=== PATIENT | female | born 1985 | race Caucasian/White ===

== ENCOUNTER 2017-11-02 18:21 | Emergency (ER) | payer OTHER ==
[~2017-11-02] VITALS: Ht 165.1 cm; Wt 68.0 kg
[~2017-11-02 18:21] MED LIST: AZIT250T PO; birth control
[2017-11-02 18:40] VITALS: BP 117/69
[2017-11-02] MEDS ORDERED: predniSONE 20 MG TABLET PO ONE (18:45)
--- NOTE | 2017-11-02 18:45 | ED.ADGEN ---
Past History Past Medical History: No Pertinent History, Other Past Surgical History: Other Smoking: Non-smoker Alcohol Use: None Drug Use: None Adult General Chief Complaint Chief Complaint " I ve got a really bad sore throat...It came on all of sudden.. I think I got it from my ...." HPI HPI Patient is a 32 year old female who presents with above hx and complaints of pharyngitis, myalgia, fever, malaise, and dysuria. Has been exposed to her who has similar complaints of pharyngitis. No recent travel. No specific ill contacts other than . Patient is normally healthy. Patient up-to-date with vaccinations. Follows at [facility]. Review of Systems Review of Systems Constitutional: Complaints of fever and chills [] Eyes: Denies change in visual acuity, redness, or eye pain [] HENT: Denies nasal congestion. Complaints of sore throat [] Respiratory: Denies cough or shortness of breath [] Cardiovascular: No additional information not addressed in HPI [] GI: Denies abdominal pain, nausea, vomiting, bloody stools or diarrhea [] : Complaints of dysuria. Denies hematuria [] Musculoskeletal: Denies back pain or joint pain [] Integument: Denies rash or skin lesions [] Neurologic: Denies headache, focal weakness or sensory changes [] Endocrine: Denies polyuria or polydipsia [] All other systems were reviewed and found to be within normal limits, except as documented in this note. Family History Family History has a sore throat Current Medications Current Medications Current Medications Medications (Trade) Dose Ordered Sig/Lyly Start Time Stop Time Status Last Admin Dose Admin Cephalexin HCl (Keflex) 500 mg 1X ONCE 11/02/17 19:30 11/02/17 19:31 DC 11/02/17 19:36 500 MG Prednisone (Prednisone) 60 mg 1X ONCE 11/02/17 18:45 11/02/17 18:50 DC 11/02/17 19:36 60 MG See nursing for home meds Allergies Allergies Allergies Coded Allergies Type Severity Reaction Last Updated Verified No Known Drug Allergies 03/14/14 No Physical Exam Physical Exam Constitutional: Well developed, well nourished, moderately acute distress, non- toxic appearance. [] HENT: Normocephalic, atraumatic, bilateral external ears normal, oropharynx moist, injected pharynx, no oral exudates, nose mild rhinorrhea Eyes: PERRLA, EOMI, conjunctiva normal, no discharge. [] Neck: Normal range of motion, no tenderness, supple, no stridor. Adenopathy Cardiovascular:Heart rate regular rhythm, no murmur [] Lungs & Thorax: Bilateral breath sounds clear to auscultation [] Abdomen: Bowel sounds normal, soft, no tenderness, no masses, no pulsatile masses. [] Skin: Warm, dry, no erythema, no rash. [] Back: No tenderness, no CVA tenderness. [] Extremities: No tenderness, no cyanosis, no clubbing, ROM intact, no edema. [] Neurologic: Alert and oriented X 3, normal motor function, normal sensory function, no focal deficits noted. [] Psychologic: Affect anxious, judgement normal, mood normal. [] Current Patient Data Vital Signs Vital Signs Date Time Temp Pulse Resp B/P (MAP) Pulse Ox O2 Delivery O2 Flow Rate FiO2 11/02/17 18:40 100.6 105 20 98 Room Air Lab Results Laboratory Tests Test 11/02/17 18:32 11/02/17 18:41 11/02/17 18:48 Urine Collection Type Unknown Urine Color Yellow Urine Clarity Hazy Urine pH 7.0 Urine Specific [place] 1.020 Urine Protein 30 mg/dl (NEG-TRACE) Urine Glucose (UA) Neg mg/dL (NEG) Urine Ketones (Stick) >=160 mg/dL (NEG) Urine Blood Small (NEG) Urine Nitrite Neg (NEG) Urine Bilirubin Neg (NEG) Urine Urobilinogen Dipstick 0.2 mg/dL (0.2 mg/dL) Urine Leukocyte Esterase Large (NEG) Urine RBC 1-2 /HPF (0-2) Urine WBC >40 /HPF (0-4) Urine Squamous Epithelial Cells Many /LPF Urine Bacteria Few /HPF (0-FEW) Urine Mucus Slight /LPF Influenza Type A (Rapid) Negative (NEGATIVE) Influenza Type B (Rapid) Negative (NEGATIVE) Group A Streptococcus Rapid Positive (NEGATIVE) POC Urine HCG, Qualitative hcg negative (Negative) EKG EKG [] Radiology/Procedures Radiology/Procedures [] Course & Med Decision Making Course & Med Decision Making Pertinent Labs and Imaging studies reviewed. (See chart for details). Gargle with Listerine 4 times a day. Push fluids and vitamin C drinks. Take Tylenol and ibuprofen as needed for pain and fever. May take Vicoprofen up 4 times a day for marked discomfort. Benadryl 25-50 mg 4 times a day may be helpful. Take Keflex 500-3 times a day. Follow-up urine cultures. Follow-up primary care. [] Final Impression Final Impression 1. Strep pharyngitis[] 2. Urinary tract infection Problems: Dragon Disclaimer Dragon Disclaimer This electronic medical record was generated, in whole or in part, using a voice recognition dictation system. CLARKE LOYA MD Nov 02, 2017 18:45
[2017-11-02 19:21] LABS: INFLUENZA A PATIENT NEGATIVE (NEGATIVE); INFLUENZA B PATIENT NEGATIVE (NEGATIVE)
[2017-11-02] MEDS ORDERED: CEPHALEXIN 250 MG CAPSULE PO ONE (19:30)
[2017-11-02 19:33] LABS: BILIRUBIN,URINE NEG (NEG); CLARITY,URINE HAZY; COLOR,URINE YELLOW; GLUCOSE,URINE NEG (NEG); UROBILINOGEN,URINE 0.2 mg/dL (0.2 mg/dL)
[2017-11-02 19:34] LABS: NITRITE,URINE NEG (NEG)
[2017-11-02 19:35] LABS: BACTERIA,URINE FEW /HPF (0-FEW); SQUAMOUS EPITHELIAL CELL,UR MANY /LPF; WBC,URINE >40 /HPF (0-4)
[2017-11-02] MEDS ORDERED: CEPH-264 PO (19:51)
[2017-11-02] MEDS ORDERED: HYDR-79 PO (19:51)
== END 2017-11-02 20:00 | disposition home or self-care (01) ==
LOC: ER 18:21
DX: J02.0 Streptococcal pharyngitis (principal); N39.0 Urinary tract infection, site not specified
CPT/HCPCS: 81001; 81025; 87086; 87804; 87880; 99284; J7512